=== PATIENT | female | born 1990 | race African-American/Black ===

== ENCOUNTER 2024-02-28 02:56 | Emergency (ER) | payer OTHER ==
[2024-02-28 03:03] VITALS: BP 120/77; PULSE 68; RESP 18; TEMP 97.3; BMI 24.3
[2024-02-28] MEDS ORDERED: DIPHTH,PERTUSS(ACELL),TET 0.5 ML DISP.SYRIN IM ONE (03:17)
[2024-02-28] MEDS: DIPHTH,PERTUSS(ACELL),TET VAC 0.5 ML VIAL IM ONE (03:30)
== END 2024-02-28 03:33 | disposition home or self-care (01) ==
LOC: FER 02:56
PROC: 3E0234Z Introduction of Serum, Toxoid and Vaccine into Muscle, Percutaneous Approach (ICD-10-PCS; principal; 2024-02-28)
DX: S60.311A Abrasion of right thumb, initial encounter (principal); Y35.811A Legal intervention involving manhandling, law enforcement official injured, initial encounter; Z23 Encounter for immunization
CPT/HCPCS: 99284-25